=== PATIENT | male | born 1940 | race Hispanic/Latino ===

== ENCOUNTER 2017-05-10 02:09 | Emergency (ER) | payer OTHER ==
[~2017-05-10] VITALS: Ht 170.2 cm; Wt 88.0 kg
--- NOTE | 2017-05-10 04:39 | Diagnostic Imaging Report ---
EXAMINATION: CHEST 2 VIEWS INDICATION: Cough. COMPARISON: None FINDINGS: TUBES and LINES: None. LUNGS: Lungs are not well inflated. There are bibasilar atelectasis. Mild confluent opacity in the right lung base compatible with developing infection. PLEURA: No pleural effusion or pneumothorax. HEART AND MEDIASTINUM: The cardiomediastinal silhouette is unremarkable. BONES AND SOFT TISSUES: No acute osseous lesion. Soft tissues are unremarkable. UPPER ABDOMEN: No free air under the diaphragm. IMPRESSION: Right lower lobe confluent opacity suspicious for developing infection. Follow-up until resolution after treatment is recommended Signed by: Dr. Catalino Lewis M.D. on 05/10/2017 4:35 AM
[2017-05-10] MEDS ORDERED: ONDANSETRON HCL INJ 2 MG/ML VIAL IV STA (05:29)
[2017-05-10] MEDS ORDERED: SODIUM CHLORIDE 0.9% 1000ML 1,000 ML IV STA (05:29)
[2017-05-10] MEDS ORDERED: LEVOFLOXACIN 500MG/D5W 100ML 100 ML IV STA (05:29)
[2017-05-10] MEDS ORDERED: ACETAMINOPHEN 325 MG TAB PO ONE (05:30)
[2017-05-10 06:17] LABS: BASOPHILS % 0.3 % (0.0-1.0); EOSINOPHILS # (AUTO) 0.2 (0.0-0.4); EOSINOPHILS % 1.6 % (0.0-6.0); HEMATOCRIT 36.7 % (38.2-49.6); HEMOGLOBIN 12.2 g/dL (14.0-18.0); LYMPHOCYTES # (AUTO) 1.5 (1.0-3.2); LYMPHOCYTES % 12.6 % (18.0-39.1); MEAN CORPUSCULAR HEMOGLOBIN 29.9 pg (28-32); MEAN CORPUSCULAR HGB CONC 33.2 g/dL (31-35); MONOCYTES # (AUTO) 1.1 (0.2-0.8); MONOCYTES % 9.6 % (4.4-11.3); NEUTROPHILS # (AUTO) 8.9 (2.1-6.9); NEUTROPHILS % 75.6 % (38.7-80.0); PLATELET COUNT 217 x10e3/uL (140-360); RED BLOOD COUNT 4.08 x10e6/uL (4.3-5.7); RED CELL DISTRIBUTION WIDTH 12.4 % (11.7-14.4)
[2017-05-10 06:39] LABS: ALANINE AMINOTRANSFERASE 12 IU/L (0-55); ALBUMIN 3.3 g/dL (3.5-5.0); ALBUMIN/GLOBULIN RATIO 0.8 (0.8-2.0); ALKALINE PHOSPHATASE 69 IU/L (40-150); BLOOD UREA NITROGEN 16 mg/dL (7-26); BUN/CREATININE RATIO 18 (6-25); CALCIUM 8.8 mg/dL (8.4-10.2); CARBON DIOXIDE 25 mmol/L (22-29); CHLORIDE 106 mmol/L (98-107); CREATINE KINASE 62 IU/L (30-200); CREATININE, SERUM 0.91 mg/dL (0.72-1.25); EST GLOMERULAR FILTRATION RATE > 60 ML/MIN (60-); GLUCOSE 126 mg/dL (74-118); MAGNESIUM 1.5 MG/DL (1.3-2.1); SODIUM 138 mmol/L (136-145)
[2017-05-10 08:10] VITALS: BP 118/60
== END 2017-05-10 08:27 | disposition home or self-care (01) ==
LOC: ER 02:09
DX: J15.9 Unspecified bacterial pneumonia (principal); I10 Essential (primary) hypertension; E11.9 Type 2 diabetes mellitus without complications; E78.5 Hyperlipidemia, unspecified
CPT/HCPCS: 36415; 71020; 80053; 82550; 82553; 83735; 84484; 85025; 87040; 87400; 96360; 96365; 96374; 99284; J1956; J2405; J7030; 71046

== ENCOUNTER → 2017-07-22 | Outpatient (CLI) | payer OTHER ==
[~2017-07-22] MED LIST: IOPAMIDOL 370 MG/ML 200 ML INFUS..BTL INJ ONE; SODIUM CHLORIDE 0.9% 100 ML ONE
[2017-07-22 09:20] LABS: BLOOD UREA NITROGEN 16 mg/dL (7-26); BUN/CREATININE RATIO 18 (6-25); CREATININE, SERUM 0.88 mg/dL (0.72-1.25); EST GLOMERULAR FILTRATION RATE > 60 ML/MIN (60-)
--- NOTE | 2017-07-22 10:59 | Diagnostic Imaging Report ---
CT abdomen, pelvis and lower extremities, 07/22/2017 Clinical history: Bilateral lower leg pain Comparison: None Technique: Arterial protocol volumetric CT abdomen, pelvis and lower extremities after administration of 100 mL Isovue 370 intravenous contrast. Multiplanar reformatted images. Volumetric 3-D images. Arterial tree generated at an independent workstation under physician supervision. DLP: 1048.44 Findings: Vascular findings: Aortic dimensions: Diaphragmatic hiatus: 2.2 cm Level of the renal arteries: 2 cm Infrarenal aorta: 1.8 cm The aorta demonstrates normal caliber and contour. Mild nonflow limiting calcified and noncalcified atheromatous plaque. Celiac axis: Ostial calcification without stenosis. Otherwise, normal SMA: Minimal ostial calcification without stenosis. Otherwise, normal ANA: Normal Renal arteries: Single bilaterally. Mild ostial calcification without stenosis. Right lower extremity: Mild common iliac artery calcification. Normal internal and external iliac arteries. Common femoral artery: Normal Superficial femoral artery: Multifocal [id number] atherosclerosis. Popliteal: 1.5 cm proximal segment 50% stenosis (image 51, series 402). Severe, diffuse infrapopliteal disease, with multifocal stenosis of the anterior tibial, tibioperoneal trunk, peroneal and posterior tibial arteries, with marked diffuse arteriosclerosis. No definitive dorsalis pedis flow. Diminutive recanalization of the medial and lateral plantar arteries. Left lower extremity: Mild common iliac artery calcification. Normal internal and external iliac arteries. Common femoral artery: Normal Superficial femoral artery: Multifocal [id number] atherosclerosis. Popliteal artery: Patent. Severe, diffuse infrapopliteal disease, with multifocal stenosis of the anterior tibial, tibioperoneal trunk, peroneal and posterior tibial arteries, with marked diffuse arteriosclerosis. Diminutive dorsalis pedis flow. Diminutive recanalization of the medial and lateral plantar arteries. Nonvascular findings: Clear lung bases. Normal heart size. Moderate for vessel coronary calcification. Liver: Normal Gallbladder: Normal Pancreas: Normal Spleen: Normal Adrenal glands: Normal Kidneys: Normal Urinary bladder: Normal Prostate and seminal vessels: Normal Bowel: Normal caliber. Normal appendix. Peritoneum: Normal Lymph nodes: Normal Skeleton: Intact. Soft tissues: Small right and moderate left fat containing inguinal hernias. Impression: 1. 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 The vessels are heavily calcified, limiting evaluation by CT. No flow-limiting stenosis through the superficial femoral arteries bilaterally. Short segment 50% stenosis of the proximal right popliteal artery. 2. Moderate coronary artery calcification. This report was generated with voice-recognition technology. Errors in trouble locater can occur. Please interpret accordingly and contact a radiologist if there are any questions regarding the report. Signed by: Dr. Curry Hall M.D. on 07/22/2017 10:56 AM
== END ==
LOC: CT 08:42
PROVIDERS: ATTEND Internal Medicine Cardiovascular Disease
DX: I70.213 Atherosclerosis of native arteries of extremities with intermittent claudication, bilateral legs (principal)
CPT/HCPCS: 36415; 75635; 82565; 84520; J7050; Q9967

== ENCOUNTER 2021-10-23 16:12 | Inpatient (IN) | payer MEDICARE ==
[~2021-10-23] VITALS: Ht 170.2 cm; Wt 88.0 kg
[2021-10-23 16:52] LABS: BASOPHILS % 0.3 % (0.0-1.0); EOSINOPHILS % 0.5 % (0.0-6.0); HEMATOCRIT 34.8 % (38.2-49.6); HEMOGLOBIN 11.6 g/dL (14.0-18.0); LYMPHOCYTES # (AUTO) 0.5 (1.0-3.2); LYMPHOCYTES % 6.5 % (18.0-39.1); MEAN CORPUSCULAR HEMOGLOBIN 31.4 pg (28-32); MEAN CORPUSCULAR HGB CONC 33.3 g/dL (31-35); MEAN CORPUSCULAR VOLUME 94.3 fL (81-99); MONOCYTES # (AUTO) 0.5 (0.2-0.8); MONOCYTES % 6.3 % (4.4-11.3); NEUTROPHILS # (AUTO) 6.6 (2.1-6.9); NEUTROPHILS % 86.1 % (38.7-80.0); PLATELET COUNT 194 x10e3/uL (140-360); RED BLOOD COUNT 3.69 x10e6/uL (4.3-5.7); RED CELL DISTRIBUTION WIDTH 12.7 % (11.7-14.4)
[2021-10-23 17:02] LABS: INR 0.87; PROTHROMBIN TIME 12.6 seconds (11.9-14.5)
[2021-10-23 17:12] LABS: ALANINE AMINOTRANSFERASE 10 IU/L (0-55); ALBUMIN 3.4 g/dL (3.5-5.0); ALBUMIN/GLOBULIN RATIO 0.8 (0.8-2.0); ALKALINE PHOSPHATASE 59 IU/L (40-150); ANION GAP 13.7 mmol/L (8-16); BLOOD UREA NITROGEN 13 mg/dL (7-26); BUN/CREATININE RATIO 15 (6-25); CALCIUM 8.7 mg/dL (8.4-10.2); CARBON DIOXIDE 23 mmol/L (22-29); CHLORIDE 103 mmol/L (98-107); CREATINE KINASE 72 IU/L (30-200); CREATININE, SERUM 0.85 mg/dL (0.72-1.25); GLUCOSE 158 mg/dL (74-118); POTASSIUM 3.7 mmol/L (3.5-5.1); SODIUM 136 mmol/L (136-145)
[2021-10-23 17:56] LABS: CLARITY,URINE SL CLOUDY (CLEAR); COLOR,URINE YELLOW (YELLOW); KETONES,URINE NEGATIVE (NEGATIVE); LEUKOCYTE ESTERASE ,URINE NEGATIVE (NEGATIVE); NITRITE,URINE NEGATIVE (NEGATIVE); PROTEIN,URINE DIPSTICK 1+ (NEGATIVE); URINE UROBILINOGEN 1 mg/dL (0.2 - 1)
[2021-10-23 18:10] LABS: BACTERIA,URINE RARE /HPF; WBC,URINE (MAN) 0-5 /HPF (0-5)
[2021-10-23] MEDS ORDERED: ACETAMINOPHEN 325 MG TAB PO PRN (19:15)
[2021-10-23] MEDS ORDERED: ONDANSETRON HCL INJ 2MG/ML 2ML 2 MG/ML VIAL IV PRN (19:15)
[2021-10-23 21:16] VITALS: BP 162/75
[2021-10-23 22:00] VITALS: BP 162/75
[2021-10-23] MEDS: SODIUM CHLORIDE 0.9% 1000ML 1,000 ML IV SCH (22:09)
[2021-10-23 23:30] VITALS: BP 162/75
[2021-10-24] VITALS (8 sets, daily range): BP systolic 125–163; BP diastolic 59–84
[2021-10-24 05:04] LABS: BASOPHILS % 0.4 % (0.0-1.0); EOSINOPHILS % 0.3 % (0.0-6.0); HEMATOCRIT 34.9 % (38.2-49.6); HEMOGLOBIN 11.4 g/dL (14.0-18.0); LYMPHOCYTES # (AUTO) 0.7 (1.0-3.2); MEAN CORPUSCULAR HEMOGLOBIN 30.9 pg (28-32); MEAN CORPUSCULAR HGB CONC 32.7 g/dL (31-35); MEAN CORPUSCULAR VOLUME 94.6 fL (81-99); MONOCYTES # (AUTO) 0.5 (0.2-0.8); MONOCYTES % 7.3 % (4.4-11.3); NEUTROPHILS # (AUTO) 5.4 (2.1-6.9); NEUTROPHILS % 80.6 % (38.7-80.0); PLATELET COUNT 180 x10e3/uL (140-360); RED BLOOD COUNT 3.69 x10e6/uL (4.3-5.7); RED CELL DISTRIBUTION WIDTH 12.8 % (11.7-14.4)
[2021-10-24 05:33] LABS: ALBUMIN 3.1 g/dL (3.5-5.0); ALBUMIN/GLOBULIN RATIO 0.7 (0.8-2.0); ANION GAP 11.5 mmol/L (8-16); CALCIUM 8.1 mg/dL (8.4-10.2); CREATININE, SERUM 0.83 mg/dL (0.72-1.25); POTASSIUM 3.5 mmol/L (3.5-5.1)
[2021-10-24] MEDS: SODIUM CHLORIDE 0.9% 1000ML 1,000 ML IV SCH ×2 (05:40→21:23)
[2021-10-24] MEDS ORDERED: ATORVASTATIN CA10 MG PO (05:56)
[2021-10-24] MEDS ORDERED: METOPROLOL TART50 MG PO (05:56)
[2021-10-24] MEDS ORDERED: FINASTERIDE5 MG PO (05:56)
[2021-10-24] MEDS ORDERED: GLIMEPIRIDE4 MG (05:56)
[2021-10-24] MEDS ORDERED: METFORMIN HCL500 MG PO (05:56)
[2021-10-24] MEDS ORDERED: CILOSTAZOL100 MG PO (05:56)
[2021-10-24] MEDS ORDERED: ARICEPT5 MG PO (05:56)
[2021-10-24] MEDS ORDERED: LOSARTAN POTAS100 MG PO (05:56)
[2021-10-24] MEDS ORDERED: FLOMAX0.4 MG PO (05:56)
[2021-10-24] MEDS ORDERED: DEXTROSE 50% SYRINGE 50 ML IV PRN (09:45)
[2021-10-24] MEDS ORDERED: HYDRALAZINE HCL 20 MG/ML VIAL IV PRN (10:00)
[2021-10-24] MEDS: METOPROLOL TARTRATE 50 MG TAB PO SCH ×2 (10:26→16:23)
[2021-10-24] MEDS: LOSARTAN POTASSIUM 100 MG TAB PO SCH (10:29)
[2021-10-24] MEDS ORDERED: DEXAMETHASONE SOD PHOS 10 MG/1 ML VIAL IV SCH (10:30)
[2021-10-24] MEDS: INSULIN LISPRO 100 UNIT/1 ML 3ML VIAL SQ SCH ×3 (11:30→21:24)
[2021-10-24] MEDS: IPRATROPIUM/ALBUTEROL SULFATE 4 GM INH INH SCH ×2 (13:00→19:00)
[2021-10-24] MEDS ORDERED: REMDESIVIR 200MG 200 MG in SODIUM CHLORIDE 0.9% 100 ML IV ONE (15:00)
[2021-10-24] MEDS: REMDESIVIR 100MG 100 MG in SODIUM CHLORIDE 0.9% 100 ML IV SCH ×2 (16:20→16:25)
[2021-10-24] MEDS: CILOSTAZOL 100 MG TAB PO SCH (16:20)
[2021-10-24] MEDS: ENOXAPARIN SOD INJ 40 MG/0.4 ML SYR SC SCH (16:25)
[2021-10-24] MEDS: ATORVASTATIN 10 MG TAB PO SCH (21:23)
[2021-10-24] MEDS: DONEPEZIL HCL 5 MG TAB PO SCH (21:23)
[2021-10-25] VITALS (8 sets, daily range): BP systolic 135–179; BP diastolic 67–81
[2021-10-25] MEDS: IPRATROPIUM/ALBUTEROL SULFATE 4 GM INH INH SCH ×4 (01:00→19:25)
[2021-10-25 06:20] LABS: BASOPHILS % 0.2 % (0.0-1.0); HEMATOCRIT 35.9 % (38.2-49.6); HEMOGLOBIN 12.1 g/dL (14.0-18.0); LYMPHOCYTES # (AUTO) 0.6 (1.0-3.2); LYMPHOCYTES % 9.7 % (18.0-39.1); MEAN CORPUSCULAR HEMOGLOBIN 30.9 pg (28-32); MEAN CORPUSCULAR HGB CONC 33.7 g/dL (31-35); MEAN CORPUSCULAR VOLUME 91.6 fL (81-99); MONOCYTES # (AUTO) 0.5 (0.2-0.8); MONOCYTES % 6.8 % (4.4-11.3); NEUTROPHILS # (AUTO) 5.5 (2.1-6.9); PLATELET COUNT 192 x10e3/uL (140-360); RED BLOOD COUNT 3.92 x10e6/uL (4.3-5.7); RED CELL DISTRIBUTION WIDTH 12.4 % (11.7-14.4)
[2021-10-25 07:08] LABS: ANION GAP 11.6 mmol/L (8-16); CALCIUM 8.1 mg/dL (8.4-10.2); CREATININE, SERUM 0.75 mg/dL (0.72-1.25); POTASSIUM 3.6 mmol/L (3.5-5.1)
[2021-10-25] MEDS: INSULIN LISPRO 100 UNIT/1 ML 3ML VIAL SQ SCH ×4 (10:29→22:45)
[2021-10-25] MEDS: METOPROLOL TARTRATE 50 MG TAB PO SCH ×2 (10:30→16:28)
[2021-10-25] MEDS: TAMSULOSIN HCL 0.4 MG CAP PO SCH (10:30)
[2021-10-25] MEDS: LOSARTAN POTASSIUM 100 MG TAB PO SCH (10:30)
[2021-10-25] MEDS: CILOSTAZOL 100 MG TAB PO SCH ×2 (10:30→16:28)
[2021-10-25] MEDS: FINASTERIDE 5 MG TAB PO SCH (10:31)
[2021-10-25] MEDS: SODIUM CHLORIDE 0.9% 1000ML 1,000 ML IV SCH (16:27)
[2021-10-25] MEDS: ENOXAPARIN SOD INJ 40 MG/0.4 ML SYR SC SCH (16:28)
[2021-10-25] MEDS: DONEPEZIL HCL 5 MG TAB PO SCH (22:40)
[2021-10-25] MEDS: BENZONATATE 100 MG CAP PO PRN (22:40)
[2021-10-25] MEDS: ATORVASTATIN 10 MG TAB PO SCH (22:40)
[2021-10-26] VITALS (7 sets, daily range): BP systolic 138–179; BP diastolic 71–86
[2021-10-26] MEDS: IPRATROPIUM/ALBUTEROL SULFATE 4 GM INH INH SCH ×4 (00:46→18:36)
[2021-10-26] MEDS: INSULIN LISPRO 100 UNIT/1 ML 3ML VIAL SQ SCH ×4 (07:30→21:00)
[2021-10-26] MEDS: FINASTERIDE 5 MG TAB PO SCH (08:55)
[2021-10-26] MEDS: TAMSULOSIN HCL 0.4 MG CAP PO SCH (08:55)
[2021-10-26] MEDS: CILOSTAZOL 100 MG TAB PO SCH ×2 (08:55→16:46)
[2021-10-26] MEDS: METOPROLOL TARTRATE 50 MG TAB PO SCH ×2 (08:56→16:47)
[2021-10-26] MEDS: LOSARTAN POTASSIUM 100 MG TAB PO SCH (08:56)
[2021-10-26] MEDS ORDERED: AZITHROMYCIN 250 MG TAB PO SCH (09:00)
[2021-10-26] MEDS: DEXAMETHASONE SOD PHOS INJ 4 MG/ML SDV IV SCH (09:03)
[2021-10-26 10:41] LABS: ALBUMIN 3.1 g/dL (3.5-5.0); ALBUMIN/GLOBULIN RATIO 0.8 (0.8-2.0); ANION GAP 12.1 mmol/L (8-16); CALCIUM 8.4 mg/dL (8.4-10.2); CREATININE, SERUM 0.86 mg/dL (0.72-1.25); POTASSIUM 3.1 mmol/L (3.5-5.1)
[2021-10-26] MEDS: REMDESIVIR 100MG 100 MG in SODIUM CHLORIDE 0.9% 100 ML IV SCH (14:07)
[2021-10-26] MEDS: SODIUM CHLORIDE 0.9% 1000ML 1,000 ML IV SCH (14:09)
[2021-10-26] MEDS: ENOXAPARIN SOD INJ 40 MG/0.4 ML SYR SC SCH (16:47)
[2021-10-26] MEDS ORDERED: ZIPRASIDONE 20 MG VIAL IM PRN (20:15)
[2021-10-26] MEDS: MELATONIN 5 MG TABLET PO SCH (21:00)
[2021-10-26] MEDS: ATORVASTATIN 10 MG TAB PO SCH (22:23)
[2021-10-26] MEDS: DONEPEZIL HCL 5 MG TAB PO SCH (22:23)
[2021-10-27 01:38] VITALS: BP 112/62
[2021-10-27] MEDS: IPRATROPIUM/ALBUTEROL SULFATE 4 GM INH INH SCH ×5 (02:36→21:22)
[2021-10-27 05:31] VITALS: BP 113/67
[2021-10-27] MEDS: INSULIN LISPRO 100 UNIT/1 ML 3ML VIAL SQ SCH ×4 (07:30→21:33)
[2021-10-27] MEDS: CILOSTAZOL 100 MG TAB PO SCH ×2 (09:00→17:02)
[2021-10-27] MEDS: METOPROLOL TARTRATE 50 MG TAB PO SCH ×2 (09:00→17:03)
[2021-10-27 09:23] VITALS: BP 153/65
[2021-10-27] MEDS: DEXAMETHASONE SOD PHOS INJ 4 MG/ML SDV IV SCH (09:41)
[2021-10-27 11:27] VITALS: BP 149/74
[2021-10-27] MEDS: FINASTERIDE 5 MG TAB PO SCH (14:35)
[2021-10-27] MEDS: TAMSULOSIN HCL 0.4 MG CAP PO SCH (14:35)
[2021-10-27] MEDS: SODIUM CHLORIDE 0.9% 1000ML 1,000 ML IV SCH (14:36)
[2021-10-27] MEDS: LOSARTAN POTASSIUM 100 MG TAB PO SCH (14:36)
[2021-10-27] MEDS: REMDESIVIR 100MG 100 MG in SODIUM CHLORIDE 0.9% 100 ML IV SCH (14:37)
[2021-10-27 15:51] VITALS: BP 177/75
[2021-10-27] MEDS: APIXAB 2.5 MG TABLET PO SCH (17:03)
[2021-10-27 20:12] VITALS: BP 177/84
[2021-10-27] MEDS: MELATONIN 5 MG TABLET PO SCH (21:24)
[2021-10-27] MEDS: DONEPEZIL HCL 5 MG TAB PO SCH (21:24)
[2021-10-27] MEDS: ATORVASTATIN 10 MG TAB PO SCH (21:24)
[2021-10-27] MEDS: BENZONATATE 100 MG CAP PO PRN (21:25)
[2021-10-27] MEDS: QUETIAPINE FUMARATE 25 MG TAB PO SCH (21:25)
[2021-10-28] VITALS (7 sets, daily range): BP systolic 119–145; BP diastolic 53–77
[2021-10-28 06:06] LABS: BASOPHILS % 0.1 % (0.0-1.0); EOSINOPHILS % 0.3 % (0.0-6.0); HEMATOCRIT 37.5 % (38.2-49.6); HEMOGLOBIN 12.3 g/dL (14.0-18.0); LYMPHOCYTES # (AUTO) 1.7 (1.0-3.2); LYMPHOCYTES % 24.7 % (18.0-39.1); MEAN CORPUSCULAR HEMOGLOBIN 30.6 pg (28-32); MEAN CORPUSCULAR HGB CONC 32.8 g/dL (31-35); MEAN CORPUSCULAR VOLUME 93.3 fL (81-99); MONOCYTES # (AUTO) 0.7 (0.2-0.8); NEUTROPHILS # (AUTO) 4.5 (2.1-6.9); NEUTROPHILS % 64.8 % (38.7-80.0); PLATELET COUNT 251 x10e3/uL (140-360); RED BLOOD COUNT 4.02 x10e6/uL (4.3-5.7); RED CELL DISTRIBUTION WIDTH 12.5 % (11.7-14.4)
[2021-10-28 06:33] LABS: ANION GAP 13.4 mmol/L (8-16); CALCIUM 8.1 mg/dL (8.4-10.2); CREATININE, SERUM 0.87 mg/dL (0.72-1.25); POTASSIUM 3.4 mmol/L (3.5-5.1)
[2021-10-28] MEDS: IPRATROPIUM/ALBUTEROL SULFATE 4 GM INH INH SCH ×3 (07:40→19:25)
[2021-10-28] MEDS: INSULIN LISPRO 100 UNIT/1 ML 3ML VIAL SQ SCH ×4 (09:13→21:48)
[2021-10-28] MEDS: TAMSULOSIN HCL 0.4 MG CAP PO SCH (09:14)
[2021-10-28] MEDS: DEXAMETHASONE SOD PHOS INJ 4 MG/ML SDV IV SCH (09:14)
[2021-10-28] MEDS: LOSARTAN POTASSIUM 100 MG TAB PO SCH (09:14)
[2021-10-28] MEDS: APIXAB 2.5 MG TABLET PO SCH ×2 (09:14→17:02)
[2021-10-28] MEDS: CILOSTAZOL 100 MG TAB PO SCH ×2 (09:14→17:02)
[2021-10-28] MEDS: METOPROLOL TARTRATE 50 MG TAB PO SCH ×2 (09:15→17:03)
[2021-10-28] MEDS: FINASTERIDE 5 MG TAB PO SCH (09:15)
[2021-10-28] MEDS: GUAIFENESIN 600 MG TAB PO SCH ×2 (09:25→17:02)
[2021-10-28] MEDS ORDERED: SODIUM CHLORIDE 0.9% 250ML 250 ML ONE (10:50)
[2021-10-28] MEDS ORDERED: FUROSEMIDE INJ 10 MG/ML 2 ML VIAL IV ONE (11:15)
[2021-10-28] MEDS: REMDESIVIR 100MG 100 MG in SODIUM CHLORIDE 0.9% 100 ML IV SCH (11:54)
[2021-10-28] MEDS: GUAIFENESIN/CODEINE 5 ML LIQD PO PRN ×2 (11:54→21:41)
[2021-10-28] MEDS: ATORVASTATIN 10 MG TAB PO SCH (21:39)
[2021-10-28] MEDS: QUETIAPINE FUMARATE 25 MG TAB PO SCH (21:39)
[2021-10-28] MEDS: DONEPEZIL HCL 5 MG TAB PO SCH (21:39)
[2021-10-28] MEDS: MELATONIN 5 MG TABLET PO SCH (21:39)
[2021-10-28] MEDS: BENZONATATE 100 MG CAP PO PRN (21:41)
[2021-10-29] VITALS (7 sets, daily range): BP systolic 109–210; BP diastolic 52–100
[2021-10-29] MEDS: IPRATROPIUM/ALBUTEROL SULFATE 4 GM INH INH SCH ×4 (01:00→19:00)
[2021-10-29] MEDS: FINASTERIDE 5 MG TAB PO SCH (08:02)
[2021-10-29] MEDS: APIXAB 2.5 MG TABLET PO SCH ×2 (08:02→16:12)
[2021-10-29] MEDS: DEXAMETHASONE SOD PHOS INJ 4 MG/ML SDV IV SCH (08:02)
[2021-10-29] MEDS: GUAIFENESIN 600 MG TAB PO SCH ×2 (08:02→16:12)
[2021-10-29] MEDS: TAMSULOSIN HCL 0.4 MG CAP PO SCH (08:02)
[2021-10-29] MEDS: CILOSTAZOL 100 MG TAB PO SCH ×2 (08:02→16:13)
[2021-10-29] MEDS: INSULIN LISPRO 100 UNIT/1 ML 3ML VIAL SQ SCH ×4 (08:04→22:12)
[2021-10-29] MEDS: METOPROLOL TARTRATE 50 MG TAB PO SCH ×2 (08:16→16:13)
[2021-10-29] MEDS: LOSARTAN POTASSIUM 100 MG TAB PO SCH (08:16)
[2021-10-29] MEDS: GUAIFENESIN/CODEINE 5 ML LIQD PO PRN ×2 (12:19→22:04)
[2021-10-29] MEDS ORDERED: ONDANSETRON HCL 4 MG ORAL DISINTEGRATING TAB PO PRN (14:15)
[2021-10-29] MEDS: QUETIAPINE FUMARATE 25 MG TAB PO SCH (22:03)
[2021-10-29] MEDS: ATORVASTATIN 10 MG TAB PO SCH (22:03)
[2021-10-29] MEDS: DONEPEZIL HCL 5 MG TAB PO SCH (22:03)
[2021-10-29] MEDS: MELATONIN 5 MG TABLET PO SCH (22:03)
[2021-10-29] MEDS: BENZONATATE 100 MG CAP PO PRN (22:04)
[2021-10-30] VITALS (8 sets, daily range): BP systolic 98–142; BP diastolic 57–76
[2021-10-30] MEDS: IPRATROPIUM/ALBUTEROL SULFATE 4 GM INH INH SCH ×5 (01:00→21:00)
[2021-10-30] MEDS: INSULIN LISPRO 100 UNIT/1 ML 3ML VIAL SQ SCH ×4 (07:30→20:44)
[2021-10-30] MEDS: GUAIFENESIN 600 MG TAB PO SCH ×2 (08:05→16:19)
[2021-10-30] MEDS: CILOSTAZOL 100 MG TAB PO SCH ×2 (08:05→16:19)
[2021-10-30] MEDS: TAMSULOSIN HCL 0.4 MG CAP PO SCH (08:05)
[2021-10-30] MEDS: APIXAB 2.5 MG TABLET PO SCH ×2 (08:05→16:18)
[2021-10-30] MEDS: FINASTERIDE 5 MG TAB PO SCH (08:05)
[2021-10-30] MEDS: LOSARTAN POTASSIUM 100 MG TAB PO SCH (08:05)
[2021-10-30] MEDS: METOPROLOL TARTRATE 50 MG TAB PO SCH ×2 (08:06→16:18)
[2021-10-30] MEDS: DONEPEZIL HCL 5 MG TAB PO SCH (20:35)
[2021-10-30] MEDS: ATORVASTATIN 10 MG TAB PO SCH (20:36)
[2021-10-30] MEDS: MELATONIN 5 MG TABLET PO SCH (20:36)
[2021-10-30] MEDS ORDERED: LORAZEPAM 1 MG TAB PO ONE (20:45)
[2021-10-30] MEDS ORDERED: QUETIAPINE FUMARATE 25 MG TAB PO SCH (21:00)
== END 2021-10-30 21:20 | DRG 177 ==
LOC: ER 16:16 → ERHOLD 19:03 → MED/SURG2 21:23 → OBSVTOIN 10-24 09:55 → MED/SURG3 10-24 17:17
PROVIDERS: ADMIT Internal Medicine; ATTEND Internal Medicine
PROC: 3E0333Z Introduction of Anti-inflammatory into Peripheral Vein, Percutaneous Approach (ICD-10-PCS; principal; 2021-10-24)
PROC: XW033E5 Introduction of Remdesivir Anti-infective into Peripheral Vein, Percutaneous Approach, New Technology Group 5 (ICD-10-PCS; 2021-10-24)
DX: U07.1 COVID-19 (principal); G92.9 Unspecified toxic encephalopathy; J12.82 Pneumonia due to coronavirus disease 2019; J96.21 Acute and chronic respiratory failure with hypoxia; J15.9 Unspecified bacterial pneumonia; K21.9 Gastro-esophageal reflux disease without esophagitis; E78.5 Hyperlipidemia, unspecified; E78.00 Pure hypercholesterolemia, unspecified; E11.42 Type 2 diabetes mellitus with diabetic polyneuropathy; F03.90 Unspecified dementia, unspecified severity, without behavioral disturbance, psychotic disturbance, mood disturbance, and anxiety; N40.0 Benign prostatic hyperplasia without lower urinary tract symptoms; Z99.81 Dependence on supplemental oxygen; Z87.891 Personal history of nicotine dependence; G30.9 Alzheimer's disease, unspecified; F02.80 Dementia in other diseases classified elsewhere, unspecified severity, without behavioral disturbance, psychotic disturbance, mood disturbance, and anxiety; T38.0X5A Adverse effect of glucocorticoids and synthetic analogues, initial encounter; R91.8 Other nonspecific abnormal finding of lung field; E11.65 Type 2 diabetes mellitus with hyperglycemia
CPT/HCPCS: 36415; 70450; 71045; 71250; 80048; 80053; 81001; 82140; 82550; 82553; 82948; 83036; 83735; 84443; 84484; 85025; 85610; 85730; 87040; 87086; 93005; 94799; 96361; 96372; 97139; 99251; 99284; G0378; J0248; J0360; J0456; J0696; J1100; J1650; J1940; J3486; J7030; J7050